=== PATIENT | female | born 1955 | race Caucasian/White ===

== ENCOUNTER 2018-05-17 12:41 | Emergency (ER) | payer MEDICAID ==
[~2018-05-17] VITALS: Ht 160 cm; Wt 80.0 kg
[~2018-05-17 12:41] MED LIST: ONDA8TAB9 PO
[2018-05-17 12:52] VITALS: BP 151/77
[2018-05-17] MEDS ORDERED: SULF1TAB48 PO (13:35)
== END 2018-05-17 14:15 | disposition home or self-care (01) ==
LOC: ER 12:41
DX: L02.415 Cutaneous abscess of right lower limb (principal); G89.29 Other chronic pain; Z98.890 Other specified postprocedural states; Z88.1 Allergy status to other antibiotic agents; Z79.2 Long term (current) use of antibiotics
CPT/HCPCS: 10060; 99283

== ENCOUNTER 2018-12-01 19:21 | Emergency (ER) | payer MEDICAID ==
[~2018-12-01] VITALS: Ht 160 cm; Wt 77.3 kg
[2018-12-01 21:23] LABS: BASOPHILS # (AUTO) 0.1 X10'3 (0-0.2); BASOPHILS % (AUTO) 0.4 % (0-1); EOSINOPHILS % (AUTO) 0.1 % (0-6); HEMATOCRIT 39.5 % (35.0-45.0); HEMOGLOBIN 13.1 g/dl (12.0-16.0); LYMPHOCYTES # (AUTO) 2.4 X10'3 (1.1-4.8); LYMPHOCYTES % (AUTO) 17.4 % (21-51); MEAN CORPUSCULAR HEMOGLOBIN 27.8 PG (27.0-31.0); MEAN CORPUSCULAR HGB CONC 33.2 g/dL (33.0-36.5); MEAN CORPUSCULAR VOLUME 83.6 FL (78-98); MEAN PLATELET VOLUME 7.8 FL (7.4-10.4); MONOCYTES # (AUTO) 0.9 X10'3 (0-0.9); MONOCYTES % (AUTO) 6.7 % (2-12); NEUTROPHILS # (AUTO) 10.5 X10'3 (1.8-7.7); NEUTROPHILS % (AUTO) 75.4 % (42-75); PLATELET COUNT 280 X10'3 (140-440); RED BLOOD COUNT 4.72 X10'6 (4.20-5.60); RED CELL DISTRIBUTION WIDTH 13.6 % (11.5-14.5); WHITE BLOOD COUNT 13.9 X10'3 (4.5-11.0)
[2018-12-01 21:55] LABS: ALANINE AMINOTRANSFERASE 33 U/L (12-78); ALBUMIN 2.6 G/DL (3.4-5.0); ALBUMIN/GLOBULIN RATIO 0.5 (1.1-1.5); ALKALINE PHOSPHATASE 88 IU/L (46-116); ANION GAP 7 (8-16); ASPARTATE AMINO TRANSFERASE 32 U/L (10-37); BILIRUBIN,TOTAL 0.4 MG/DL (0.1-1.0); BLOOD UREA NITROGEN 19 MG/DL (7-18); BUN/CREATININE RATIO 19.8 (6.6-38.0); CHLORIDE 94 MMOL/L (99-107); CREATININE 0.96 MG/DL (0.40-0.90); GLUCOSE 150 MG/DL (70-104); SODIUM 131 MMOL/L (135-145); TOTAL PROTEIN 7.5 G/DL (6.4-8.2); eGFR 59 ML/MIN
[2018-12-01 22:01] LABS: POTASSIUM 2.7 MMOL/L (3.5-5.1)
[2018-12-01] MEDS ORDERED: potassium Cl 10 mEq/100mL bag IV ONE (22:40)
[2018-12-01] MEDS ORDERED: HYDROcodone/acetaminophen 5mg/325mg tablet PO ONE (22:40)
[2018-12-01] MEDS ORDERED: potassium Cl 20 mEq SR tablet PO ONE (22:40)
[2018-12-01] MEDS ORDERED: ondansetron/PF 4mg/2ml inj IV ONE (22:40)
[2018-12-01] MEDS ORDERED: normal saline 1000ML IV soln IVB ONE (22:40)
[2018-12-01] MEDS ORDERED: METR-159 PO (22:53)
[2018-12-01] MEDS ORDERED: CIPR-230 PO (22:53)
[2018-12-01] MEDS ORDERED: metroNIDAZOLE 500mg tablet PO ONE (22:55)
[2018-12-01] MEDS ORDERED: ciprofloxacin 250mg tablet PO ONE (22:55)
[2018-12-02 01:42] VITALS: BP 134/82
== END 2018-12-02 01:59 | disposition home or self-care (01) ==
LOC: ER 19:21
DX: K57.92 Diverticulitis of intestine, part unspecified, without perforation or abscess without bleeding (principal); G89.29 Other chronic pain; Z79.2 Long term (current) use of antibiotics; Z79.899 Other long term (current) drug therapy; Z98.890 Other specified postprocedural states
CPT/HCPCS: 36415; 80053; 85025; 85610; 96361; 96374; 96375; 99284; J2405; J3480; J7030; J3490

== ENCOUNTER 2019-01-02 14:38 | Emergency (ER) | payer MEDICAID ==
[~2019-01-02] VITALS: Ht 160 cm; Wt 73.0 kg
[2019-01-02 14:56] VITALS: BP 139/64
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
[2019-01-02] MEDS ORDERED: ketorolac tromethamine 15mg/ml inj. IM ONE (15:55)
[2019-01-02] MEDS ORDERED: IBUP-1984 PO (16:41)
[2019-01-02] MEDS ORDERED: ACET-2119 PO (16:41)
== END 2019-01-02 16:55 | disposition home or self-care (01) ==
LOC: ER 14:39
DX: M25.551 Pain in right hip (principal); G89.29 Other chronic pain; Z88.1 Allergy status to other antibiotic agents; Z79.899 Other long term (current) drug therapy
CPT/HCPCS: 73502; 96372; 99284; J1885

== ENCOUNTER 2019-02-19 22:09 | Emergency (ER) | payer MEDICAID ==
[~2019-02-19] VITALS: Ht 160 cm; Wt 63.0 kg
[2019-02-19 22:17] VITALS: BP 121/71
[2019-02-19] MEDS ORDERED: DOXY100C2 PO (22:43)
[2019-02-19] MEDS ORDERED: MUPI22OI30 TOP (22:43)
== END 2019-02-19 22:52 | disposition home or self-care (01) ==
LOC: ER 22:10
DX: L01.00 Impetigo, unspecified (principal); L98.8 Other specified disorders of the skin and subcutaneous tissue; H92.03 Otalgia, bilateral; E89.0 Postprocedural hypothyroidism; G89.29 Other chronic pain; Z98.890 Other specified postprocedural states; Z88.1 Allergy status to other antibiotic agents; Z79.899 Other long term (current) drug therapy
CPT/HCPCS: 99283

== ENCOUNTER 2019-04-05 18:25 | Emergency (ER) | payer MEDICAID ==
[~2019-04-05] VITALS: Ht 160 cm; Wt 70.3 kg
[2019-04-05 18:36] VITALS: BP 120/88
[2019-04-05] MEDS ORDERED: BACDS PO (18:59)
== END 2019-04-05 19:16 | disposition home or self-care (01) ==
LOC: ER 18:26
DX: L02.31 Cutaneous abscess of buttock (principal); L03.317 Cellulitis of buttock; G89.29 Other chronic pain; Z98.890 Other specified postprocedural states; Z88.1 Allergy status to other antibiotic agents; Z79.899 Other long term (current) drug therapy
CPT/HCPCS: 99283

== ENCOUNTER 2019-04-23 16:35 | Emergency (ER) | payer MEDICAID ==
[~2019-04-23] VITALS: Ht 160 cm; Wt 73.2 kg
[~2019-04-23 16:35] MED LIST changes: +LIDOcaine 1% W/epiNEPHrine 1:100,000 20ml vial ONE
[2019-04-23 16:40] VITALS: BP 137/77
[2019-04-23] MEDS ORDERED: DOXY100C43 PO (17:43)
[2019-04-23] MEDS ORDERED: IMI20NS NS (17:52)
== END 2019-04-23 18:10 | disposition home or self-care (01) ==
LOC: ER 16:36
DX: L02.415 Cutaneous abscess of right lower limb (principal); G89.29 Other chronic pain; Z88.1 Allergy status to other antibiotic agents; Z79.899 Other long term (current) drug therapy
CPT/HCPCS: 10060; 99283

== ENCOUNTER 2019-04-27 06:44 | Emergency (ER) | payer MEDICAID ==
[~2019-04-27] VITALS: Ht 160 cm; Wt 80.0 kg
[~2019-04-27 06:44] MED LIST changes: +DOXY100C43 PO; +IMI20NS NS; -LIDOcaine 1% W/epiNEPHrine 1:100,000 20ml vial ONE
[2019-04-27 06:53] VITALS: BP 150/97
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
== END 2019-04-27 07:20 | disposition home or self-care (01) ==
LOC: ER 06:46
DX: L02.415 Cutaneous abscess of right lower limb (principal); Z48.00 Encounter for change or removal of nonsurgical wound dressing; G89.29 Other chronic pain; Z98.890 Other specified postprocedural states; Z88.1 Allergy status to other antibiotic agents; Z79.899 Other long term (current) drug therapy
CPT/HCPCS: 99282

== ENCOUNTER 2019-07-19 21:47 | Emergency (ER) | payer MEDICAID ==
[~2019-07-19] VITALS: Ht 160 cm; Wt 65.0 kg
[~2019-07-19 21:47] MED LIST changes: -DOXY100C43 PO; -IMI20NS NS
[2019-07-19] MEDS ORDERED: LIDOcaine 1% W/epiNEPHrine 1:200,000 10ml vial IJ ONE (23:20)
[2019-07-19] MEDS ORDERED: ibuprofen tablet 400 MG TABLET PO ONE (23:20)
[2019-07-20] MEDS ORDERED: DOXY100C43 PO (01:06)
[2019-07-20 01:56] VITALS: BP 121/47
== END 2019-07-20 01:56 | disposition home or self-care (01) ==
LOC: ER 21:48
DX: S40.021A Contusion of right upper arm, initial encounter (principal); L02.416 Cutaneous abscess of left lower limb; G89.29 Other chronic pain; Z98.890 Other specified postprocedural states; Z88.1 Allergy status to other antibiotic agents; Z79.899 Other long term (current) drug therapy; X50.1XXA Overexertion from prolonged static or awkward postures, initial encounter; Y93.89 Activity, other specified; Y92.89 Other specified places as the place of occurrence of the external cause; Y99.8 Other external cause status
CPT/HCPCS: 10060; 73560; 93971; 99284

== ENCOUNTER 2020-08-08 23:11 | Emergency (ER) | payer MEDICAID ==
[~2020-08-08] VITALS: Ht 160 cm; Wt 63.6 kg
[2020-08-09 00:34] LABS: BASOPHILS % (AUTO) 0.5 % (0-1); EOSINOPHILS # (AUTO) 0.1 X10'3 (0-0.9); HEMATOCRIT 40.6 % (35.0-45.0); HEMOGLOBIN 13.5 g/dl (12.0-16.0); LYMPHOCYTES # (AUTO) 2.6 X10'3 (1.1-4.8); LYMPHOCYTES % (AUTO) 32.4 % (21-51); MEAN CORPUSCULAR HEMOGLOBIN 28.4 PG (27.0-31.0); MEAN CORPUSCULAR HGB CONC 33.3 g/dL (33.0-36.5); MEAN CORPUSCULAR VOLUME 85.3 FL (78-98); MEAN PLATELET VOLUME 8.1 FL (7.4-10.4); MONOCYTES # (AUTO) 0.6 X10'3 (0-0.9); MONOCYTES % (AUTO) 7.2 % (2-12); NEUTROPHILS # (AUTO) 4.7 X10'3 (1.8-7.7); NEUTROPHILS % (AUTO) 58.9 % (42-75); PLATELET COUNT 246 X10'3 (140-440); RED BLOOD COUNT 4.76 X10'6 (4.20-5.60); WHITE BLOOD COUNT 8.1 X10'3 (4.5-11.0)
--- NOTE | 2020-08-09 00:35 | NUR ---
labs hemolized. redrawn by agriculture laborer.
[2020-08-09 00:38] LABS: CLARITY,URINE SLIGHTLY CLOUDY (Clear); COLOR,URINE YELLOW (Yellow); GLUCOSE, URINE NEGATIVE (Neg); KETONES,URINE NEGATIVE (Neg); LEUKOCYTE ESTERASE ,URINE SMALL (Neg); NITRITES, URINE NEGATIVE (Neg); OCCULT BLOOD,URINE TRACE-INTACT (Neg); PH,URINE 5.5 (4.8-8.0); PROTEIN,URINE NEGATIVE (Neg); UROBILINOGEN,URINE 0.2 E.U/dL (0.2-1.0)
[2020-08-09 00:44] LABS: UA COLLECTION TYPE CLN CATCH MIDSTREAM
[2020-08-09 00:45] LABS: BACTERIA,URINE 1+ /HPF (Neg); RBC,URINE 0-2 /HPF (0-2); SQUAMOUS EPITHELIAL CELL,UR FEW /LPF (FEW); WBC,URINE 20-30 /HPF (0-4)
[2020-08-09 01:10] LABS: ALANINE AMINOTRANSFERASE 20 U/L (12-78); ALBUMIN 3.5 G/DL (3.4-5.0); ALBUMIN/GLOBULIN RATIO 0.9 (1.1-1.5); ALKALINE PHOSPHATASE 86 IU/L (46-116); ANION GAP 7 (8-16); ASPARTATE AMINO TRANSFERASE 12 U/L (10-37); BILIRUBIN,TOTAL 0.2 MG/DL (0.1-1.0); BLOOD UREA NITROGEN 17 MG/DL (7-18); BUN/CREATININE RATIO 17.5 (6.6-38.0); CALCIUM 8.9 MG/DL (8.5-10.1); CHLORIDE 104 MMOL/L (99-107); CREATININE 0.97 MG/DL (0.40-0.90); GLUCOSE 109 MG/DL (70-104); POTASSIUM 3.4 MMOL/L (3.5-5.1); SODIUM 143 MMOL/L (135-145); TOTAL CARBON DIOXIDE 32.2 MMOL/L (24-32); TOTAL PROTEIN 7.2 G/DL (6.4-8.2); eGFR 58 ML/MIN
[2020-08-09] MEDS ORDERED: sulfamethoxazole/trimethoprim DS (800/160mg) tablet PO ONE (01:35)
[2020-08-09] MEDS ORDERED: SULF1TAB49 PO (01:37)
[2020-08-09 01:42] VITALS: BP 136/84
== END 2020-08-09 01:59 | disposition home or self-care (01) ==
LOC: ER 23:13
DX: N39.0 Urinary tract infection, site not specified (principal); H60.11 Cellulitis of right external ear; R10.2 Pelvic and perineal pain; R30.0 Dysuria; G89.29 Other chronic pain; Z87.440 Personal history of urinary (tract) infections; Z98.890 Other specified postprocedural states; Z88.1 Allergy status to other antibiotic agents; Z79.2 Long term (current) use of antibiotics
CPT/HCPCS: 36415; 80053; 81001; 85025; 87088; 87186; 99283

== ENCOUNTER 2020-08-23 13:31 | Emergency (ER) | payer MEDICAID ==
[~2020-08-23] VITALS: Ht 160 cm; Wt 77.3 kg
[2020-08-23 13:33] VITALS: BP 142/71
[2020-08-23 14:09] LABS: CLARITY,URINE SLIGHTLY CLOUDY (Clear); COLOR,URINE YELLOW (Yellow); GLUCOSE, URINE NEGATIVE (Neg); KETONES,URINE NEGATIVE (Neg); LEUKOCYTE ESTERASE ,URINE TRACE (Neg); NITRITES, URINE POSITIVE (Neg); OCCULT BLOOD,URINE NEGATIVE (Neg); PH,URINE 5.5 (4.8-8.0); PROTEIN,URINE NEGATIVE (Neg); UROBILINOGEN,URINE 0.2 E.U/dL (0.2-1.0)
[2020-08-23 14:19] LABS: UA COLLECTION TYPE CLN CATCH MIDSTREAM
[2020-08-23 14:20] LABS: BACTERIA,URINE 4+ /HPF (Neg); RBC,URINE NONE SEEN /HPF (0-2)
[2020-08-23 14:21] LABS: SQUAMOUS EPITHELIAL CELL,UR FEW /LPF (FEW)
[2020-08-23] MEDS ORDERED: ondansetron 4mg rapidly disintigrating tab PO ONE (15:15)
[2020-08-23] MEDS ORDERED: ACET-812 PO (15:15)
[2020-08-23] MEDS ORDERED: CIPR-230 PO (15:15)
[2020-08-23] MEDS ORDERED: ibuprofen tablet 400 MG TABLET PO ONE (15:15)
[2020-08-23] MEDS ORDERED: ciprofloxacin 250mg tablet PO ONE (15:15)
[2020-08-23] MEDS ORDERED: acetaminophen 325mg tablet PO ONE (15:15)
== END 2020-08-23 15:32 | disposition home or self-care (01) ==
LOC: ER 13:32
DX: N39.0 Urinary tract infection, site not specified (principal); M79.674 Pain in right toe(s); M25.561 Pain in right knee; G89.29 Other chronic pain; Z98.890 Other specified postprocedural states; Z88.1 Allergy status to other antibiotic agents; Z79.899 Other long term (current) drug therapy
CPT/HCPCS: 73660; 81001; 87077; 87088; 87186; 99284

== ENCOUNTER 2020-11-25 09:06 | Emergency (ER) | payer MEDICAID ==
[~2020-11-25] VITALS: Ht 160 cm; Wt 72.7 kg
[~2020-11-25 09:06] MED LIST changes: +ACET-812 PO
[2020-11-25 09:10] VITALS: BP 154/81
[2020-11-25] MEDS ORDERED: LIDOcaine 1% W/epiNEPHrine 1:200,000 10ml vial IJ ONE (10:40)
[2020-11-25] MEDS ORDERED: sulfamethoxazole/trimethoprim DS (800/160mg) tablet PO ONE (11:25)
[2020-11-25] MEDS ORDERED: SULF1TAB49 PO (11:34)
== END 2020-11-25 12:00 | disposition home or self-care (01) ==
LOC: ER 09:06
DX: L03.221 Cellulitis of neck (principal); G89.29 Other chronic pain; Z98.890 Other specified postprocedural states; Z88.1 Allergy status to other antibiotic agents; Z79.899 Other long term (current) drug therapy
CPT/HCPCS: 10160; 87070; 87077; 87186; 99284

== ENCOUNTER 2021-04-18 18:48 | Emergency (ER) | payer MEDICAID ==
[~2021-04-18] VITALS: Ht 160 cm; Wt 64.0 kg
[2021-04-18 19:02] VITALS: BP 156/66
[2021-04-18 19:58] LABS: CLARITY,URINE SLIGHTLY CLOUDY (Clear); COLOR,URINE YELLOW (Yellow); GLUCOSE, URINE NEGATIVE (Neg); KETONES,URINE NEGATIVE (Neg); LEUKOCYTE ESTERASE ,URINE NEGATIVE (Neg); NITRITES, URINE NEGATIVE (Neg); OCCULT BLOOD,URINE NEGATIVE (Neg); PROTEIN,URINE NEGATIVE (Neg); UA COLLECTION TYPE CLN CATCH MIDSTREAM; UROBILINOGEN,URINE 0.2 E.U/dL (0.2-1.0)
[2021-04-18 20:09] LABS: WBC CLUMPS,URINE FEW /HPF (NEGATIVE)
[2021-04-18 20:11] LABS: BACTERIA,URINE 2+ /HPF (Neg); RBC,URINE 0-2 /HPF (0-2)
[2021-04-18 20:12] LABS: SQUAMOUS EPITHELIAL CELL,UR FEW /LPF (FEW)
[2021-04-18] MEDS ORDERED: SULF1TAB45 PO (21:04)
--- NOTE | 2021-04-23 09:35 | NUR ---
PT. CALLED SO WE COULD STOP SEPTRA AND CALL IN KEFLEX 500MG PO TID X 7 DAYS... NO ANSWER
--- NOTE | 2021-04-25 08:31 | NUR ---
Attempted to contact patient at listed number with no answer. Letter sent to listed address. Patient is to stop taking septra and needs RX called in to pharmacy for Keflex 500 mg PO TID x7 days with [address] Farhan Coleman.
--- NOTE | 2021-04-28 00:28 | NUR ---
pt called back. pt allergic to cephalexin. dr fay notified, changed to levofloxacin 750mg po daily for 5 days.
== END 2021-04-18 21:33 | disposition home or self-care (01) ==
LOC: ER 18:49
DX: N39.0 Urinary tract infection, site not specified (principal); R30.0 Dysuria; M54.5 Low back pain; G89.29 Other chronic pain; Z87.440 Personal history of urinary (tract) infections; Z98.890 Other specified postprocedural states; Z88.1 Allergy status to other antibiotic agents; Z79.2 Long term (current) use of antibiotics; Z79.899 Other long term (current) drug therapy
CPT/HCPCS: 81001; 87077; 87088; 87186; 99283

== ENCOUNTER 2021-06-09 17:26 | Emergency (ER) | payer MEDICAID ==
[~2021-06-09] VITALS: Ht 160 cm; Wt 63.0 kg
[2021-06-09 17:51] VITALS: BP 142/68
[2021-06-09] MEDS ORDERED: HYDROcodone/acetaminophen 5mg/325mg tablet PO ONE (19:40)
[2021-06-09] MEDS ORDERED: IBUP-1984 PO (19:47)
== END 2021-06-09 20:05 | disposition home or self-care (01) ==
LOC: ER 17:26
DX: M25.551 Pain in right hip (principal); G89.29 Other chronic pain; M54.9 Dorsalgia, unspecified; Z88.1 Allergy status to other antibiotic agents; Z79.899 Other long term (current) drug therapy; E06.9 Thyroiditis, unspecified; W19.XXXA Unspecified fall, initial encounter; Y93.89 Activity, other specified; Y92.89 Other specified places as the place of occurrence of the external cause; Y99.8 Other external cause status
CPT/HCPCS: 73502; 99283

== ENCOUNTER 2021-06-24 22:41 | Emergency (ER) | payer MEDICAID ==
[~2021-06-24] VITALS: Ht 157.5 cm; Wt 60.0 kg
[~2021-06-24 22:41] MED LIST changes: +IBUP-1984 PO
[2021-06-24 22:55] VITALS: BP 101/58
[2021-06-24] MEDS ORDERED: ketorolac trometh. 30mg/ml inj. IM ONE (23:25)
[2021-06-24] MEDS ORDERED: IBUP-1984 PO (23:27)
== END 2021-06-24 23:48 | disposition home or self-care (01) ==
LOC: ER 22:42
DX: M25.561 Pain in right knee (principal); G89.29 Other chronic pain; Z87.440 Personal history of urinary (tract) infections; Z59.00 Homelessness unspecified; Z98.890 Other specified postprocedural states; Z88.1 Allergy status to other antibiotic agents; Z79.899 Other long term (current) drug therapy
CPT/HCPCS: 29515; 96372; 99283; J1885

== ENCOUNTER 2021-12-04 12:16 | Emergency (ER) | payer MEDICAID ==
[~2021-12-04 12:16] MED LIST changes: -IBUP-1984 PO
== END 2021-12-04 13:10 | disposition left against medical advice (07) ==
LOC: ER 12:16
DX: R60.9 Edema, unspecified (principal); Z53.21 Procedure and treatment not carried out due to patient leaving prior to being seen by health care provider

== ENCOUNTER 2022-06-03 20:22 | Emergency (ER) | payer MEDICAID ==
[~2022-06-03] VITALS: Ht 160 cm; Wt 59.1 kg
[~2022-06-03 20:22] MED LIST changes: +GABA300C PO
[2022-06-03 20:31] VITALS: BP 170/69
[2022-06-03 22:31] LABS: CLARITY,URINE CLEAR (Clear); COLOR,URINE STRAW (Yellow); GLUCOSE, URINE NEGATIVE (Neg); KETONES,URINE NEGATIVE (Neg); LEUKOCYTE ESTERASE ,URINE NEGATIVE (Neg); NITRITES, URINE NEGATIVE (Neg); OCCULT BLOOD,URINE NEGATIVE (Neg); PROTEIN,URINE NEGATIVE (Neg); UROBILINOGEN,URINE 0.2 E.U/dL (0.2-1.0)
[2022-06-03 22:36] LABS: UA COLLECTION TYPE CLN CATCH MIDSTREAM
== END 2022-06-04 01:51 | disposition left against medical advice (07) ==
LOC: ER 20:22
DX: R35.0 Frequency of micturition (principal); Z53.21 Procedure and treatment not carried out due to patient leaving prior to being seen by health care provider
CPT/HCPCS: 81003

== ENCOUNTER 2022-12-08 15:40 | Emergency (ER) | payer MEDICAID ==
[~2022-12-08] VITALS: Ht 160 cm; Wt 65.9 kg
[2022-12-08 15:54] VITALS: BP 141/71
[2022-12-08] MEDS ORDERED: ibuprofen 200mg tablet PO ONE (17:50)
== END 2022-12-08 18:15 | disposition home or self-care (01) ==
LOC: ER 15:41
DX: S83.92XA Sprain of unspecified site of left knee, initial encounter (principal); S39.012A Strain of muscle, fascia and tendon of lower back, initial encounter; E07.9 Disorder of thyroid, unspecified; G89.29 Other chronic pain; M54.9 Dorsalgia, unspecified; Z88.1 Allergy status to other antibiotic agents; Z79.899 Other long term (current) drug therapy
CPT/HCPCS: 99283

== ENCOUNTER 2023-01-14 10:06 | Emergency (ER) | payer MEDICAID ==
[~2023-01-14] VITALS: Ht 160 cm; Wt 65.0 kg
[2023-01-14 10:27] VITALS: BP 145/90
[2023-01-14] MEDS ORDERED: HYDR28CR14 TOP (10:56)
[2023-01-14] MEDS ORDERED: SULF1TAB49 PO (10:56)
== END 2023-01-14 11:05 | disposition home or self-care (01) ==
LOC: ER 10:07
DX: L03.116 Cellulitis of left lower limb (principal); L03.114 Cellulitis of left upper limb; L03.211 Cellulitis of face; G89.29 Other chronic pain; Z98.890 Other specified postprocedural states; Z59.00 Homelessness unspecified; Z88.1 Allergy status to other antibiotic agents; Z79.899 Other long term (current) drug therapy; W57.XXXA Bitten or stung by nonvenomous insect and other nonvenomous arthropods, initial encounter; Y93.89 Activity, other specified; Y92.89 Other specified places as the place of occurrence of the external cause; Y99.8 Other external cause status
CPT/HCPCS: 99283